=== PATIENT | male | born 1960 | race African-American/Black ===

== ENCOUNTER 2024-04-12 20:30 | Emergency (ER) | payer SELFPAY ==
[~2024-04-12] VITALS: Ht 188 cm; Wt 99.0 kg
[2024-04-12] MEDS ORDERED: ONDANSETRON HCl 4 MG/2 ML SDV IV STA (20:51)
[2024-04-12] MEDS ORDERED: SODIUM CHLORIDE 0.9% 1,000 ML IV STA (20:51)
[2024-04-12] MEDS ORDERED: Pantoprazole Sodium 40 MG VIAL (Protonix) IV STA (20:51)
[2024-04-12 21:11] LABS: BASO% 0.2 % (0-3); EOS% 0.2 % (0-8); HEMATOCRIT 25.5 % (39.0-50.0); HEMOGLOBIN 8.2 g/dl (14.0-18.0); IMMATURE GRANULOCYTES 0.7 % (0.0-5.0); LYMPH% 9.2 % (15-41); MEAN CELL VOLUME 75.4 fL CALC (80.0-100.0); MEAN CORPUSCULAR HGB 24.3 pG CALC (26.0-32.0); MEAN CORPUSCULAR HGB CONC 32.2 g/dL CAL (32.0-36.0); MONO% 11.7 % (2-13); NEUT# 10.33 thou/uL (1.82-7.42); RED BLOOD COUNT 3.38 mill/uL (4.70-6.10); RED CELL DISTRI WIDTH 13.3 % (11.5-15.5)
[2024-04-12 21:27] LABS: ALBUMIN 3.2 g/dL (3.2-5.0); BILIRUBIN, TOTAL 1.7 mg/dL (0.2-1.3); CREATININE 2.9 mg/dL (0.7-1.3); POTASSIUM 3.2 mmol/l (3.5-5.1); TOTAL PROTEIN 6.4 g/dL (6.3-8.2)
[2024-04-12 21:46] VITALS: BP 131/63
[2024-04-12] MEDS ORDERED: POTASSIUM CHLORIDE 20 MEQ/TAB PO ONE (21:55)
[2024-04-12] MEDS ORDERED: LACTATED RINGER'S 1,000 ML IV ONE (21:55)
[2024-04-12] MEDS ORDERED: TAMSULOSIN HCL 0.4 MG CAP PO ONE (22:30)
[2024-04-12 23:41] LABS: URINE BILIRUBIN - DIPSTICK Negative (NEGATIVE); URINE BLOOD DIPSTICK Moderate (NEGATIVE); URINE GLUCOSE - DIPSTICK Negative (NEGATIVE); URINE KETONE Negative (NEGATIVE); URINE PROTEIN - DIPSTICK 100 mg/dL (NEG-TRACE); URINE SPECIFIC GRAVITY 1.015
[2024-04-12 23:43] LABS: URINE COLOR Yellow; URINE LEUK ESTERASE Large (NEGATIVE)
[2024-04-12 23:44] LABS: URINE NITRITE - DIPSTICK Negative (Negative)
[2024-04-12 23:51] LABS: URINE RBC 50-100 RBC/hpf (0-5)
[2024-04-12 23:52] LABS: URINE BACTERIA MANY hpf; URINE EPITHELIAL CELLS MODERATE EPI/hpf (0-FEW); URINE WBC >100 WBC/hpf (0-5)
[2024-04-12] MEDS ORDERED: SULFAMETHOXAZOLE W/TRIMETHOPRI 1 COMBO TAB PO ONE (23:55)
[2024-04-13] MEDS ORDERED: BACTRIM DS1 TAB PO (01:08)
[2024-04-13] MEDS ORDERED: TAMSULOSIN0.4 MG PO (01:08)
[2024-04-13 01:22] VITALS: BP 125/68
== END 2024-04-13 01:30 | disposition home or self-care (01) | DRG 726 ==
LOC: ED 20:30
PROVIDERS: Family Medicine
DX: N40.1 Benign prostatic hyperplasia with lower urinary tract symptoms (principal); N13.8 Other obstructive and reflux uropathy; N17.9 Acute kidney failure, unspecified; N13.6 Pyonephrosis; B96.20 Unspecified Escherichia coli [E. coli] as the cause of diseases classified elsewhere; Z20.822 Contact with and (suspected) exposure to COVID-19
CPT/HCPCS: S0164